=== PATIENT | female | born 1995 | race Caucasian/White ===

== ENCOUNTER 2016-05-25 18:41 | Emergency (ER) | payer OTHER ==
[2016-05-25 19:03] VITALS: BP 132/70
--- NOTE | 2016-05-25 19:27 | UC ---
Throat Pain/Nasal J Carlos HPI - HPI Summary HPI Summary: ST for 2-3 days. FEels like prior episodes of Strep. Low-grade fevers, malaise, body aches. Mild congestion. Dry cough. - History of Current Complaint Chief Complaint: UCGeneralIllness Stated Complaint: SORE THROAT Time Seen by Provider: 05/25/16 19:17 Hx Obtained From: Patient Hx Last Menstrual Period: 05/15/16 Onset/Duration: Gradual Onset, Lasting Days - 3 Severity: Mild Cough: Nonproductive Associated Signs & Symptoms: Positive: Dysphagia, Fever. Negative: Hoarseness - Epiglottits Risk Factors Epiglottis Risk Factors: Negative - Allergies/Home Medications Allergies/Adverse Reactions: Allergies Allergy/AdvReac Type Severity Reaction Status Date / Time Penicillins Allergy Rash Verified 05/25/16 19:04 Sulfa Antibiotics Allergy Rash Verified 05/25/16 19:04 Sulfamethoxazole Allergy Rash Verified 05/25/16 19:04 w/Trimethoprim [From Bactrim] Home Medications: Home Medications Ascorbic Acid TAB* [Vitamin C TAB*] 500 mg PO DAILY 05/25/16 [History Confirmed 05/25/16] Ibuprofen [Ibuprofen 200 MG] 400 mg PO DAILY PRN 05/25/16 [History Confirmed ] Zinc 30 mg PO DAILY 05/25/16 [History Confirmed 05/25/16] PMH/Surg Hx/FS Hx/Imm Hx Respiratory History Of: Reports: Asthma - Surgical History Surgical History: None - Family History Known Family History: Negative: Respiratory Disease, Seizure Disorder - Social History Occupation: Employed Full-time Lives: With Family Alcohol Use: Occasionally Substance Use Type: None Smoking Status (MU): Never Smoked Tobacco Review of Systems Constitutional: Negative Skin: Negative Eyes: Negative ENT: Sore Throat, Nasal Discharge Respiratory: Cough Cardiovascular: Negative Gastrointestinal: Negative Genitourinary: Negative Motor: Negative Neurovascular: Negative Musculoskeletal: Negative Neurological: Negative Psychological: Negative All Other Systems Reviewed And Are Negative: Yes Physical Exam Triage Information Reviewed: Yes Appearance: Well-Appearing, No Pain Distress, Well-Nourished Vital Signs: Initial Vital Signs Temp 98.2 F 05/25/16 18:58 Pulse 70 05/25/16 18:58 Resp 16 05/25/16 18:58 BP 132/70 05/25/16 18:58 Pulse Ox 100 05/25/16 18:58 Vital Signs Reviewed: Yes Eye Exam: Normal ENT: Positive: Pharynx normal, Pharyngeal erythema, TMs normal, Tonsillar swelling. Negative: Nasal drainage, Tonsillar exudate, Trismus, Muffled/hoarse voice Neck exam: Normal Respiratory Exam: Normal Cardiovascular Exam: Normal Musculoskeletal Exam: Normal Neurological Exam: Normal Psychological Exam: Normal Skin Exam: Normal Diagnostics - Laboratory Diagnostic Studies Completed/Ordered: Strep pos Throat Pain/Nasal Course/Dx - Differential Dx/Diagnosis Provider Diagnoses: Strep pharyngitis Discharge - Discharge Plan Condition: Stable Disposition: HOME Prescriptions: Cephalexin CAP* [Keflex 500 CAP*] 500 mg PO TID #30 cap Patient Education Materials: Strep Throat (ED) Referrals: Non Staff,Doctor [Primary Care Provider] -
== END 2016-05-25 19:38 | disposition home or self-care (01) ==
LOC: UCCORT 18:41
DX: J02.0 Streptococcal pharyngitis (principal); Z88.0 Allergy status to penicillin; Z88.2 Allergy status to sulfonamides
CPT/HCPCS: 87651; 99212; G0463

== ENCOUNTER 2016-06-07 17:53 | Emergency (ER) | payer OTHER ==
[2016-06-07 19:32] VITALS: BP 117/68
--- NOTE | 2016-06-07 19:59 | UC ---
Throat Pain/Nasal J Carlos HPI - HPI Summary HPI Summary: 2 day history of nasal congestion and drainage, cough. No fever. Has a headache , some nausea, no vomiting. History of asthma, not presently using albuterol. REcently treated for strep, reacted to cephalexin, finished azithromycin about a week ago. - History of Current Complaint Chief Complaint: UCGeneralIllness Stated Complaint: SINUS PAIN/CONGESTION Time Seen by Provider: 06/07/16 19:48 Hx Obtained From: Patient Hx Last Menstrual Period: 05/15/16 Onset/Duration: Gradual Onset, Lasting Days - 2 Severity: Moderate Cough: Nonproductive Associated Signs & Symptoms: Positive: Dysphagia - Epiglottits Risk Factors Epiglottis Risk Factors: Negative - Allergies/Home Medications Allergies/Adverse Reactions: Allergies Allergy/AdvReac Type Severity Reaction Status Date / Time Cephalexin Allergy Hives Verified 06/07/16 19:33 Penicillins Allergy Rash Verified 06/07/16 19:33 Sulfa Antibiotics Allergy Rash Verified 06/07/16 19:33 Sulfamethoxazole Allergy Rash Verified 06/07/16 19:33 w/Trimethoprim [From Bactrim] PMH/Surg Hx/FS Hx/Imm Hx - Additional Past Medical History Additional PMH: frequent respiratory illnesses, uses zinc prophylactically. Respiratory History Of: Reports: Asthma - Surgical History Surgical History: None - Family History Known Family History: Negative: Respiratory Disease, Seizure Disorder - Social History Alcohol Use: Occasionally Substance Use Type: None Smoking Status (MU): Never Smoked Tobacco Review of Systems Constitutional: Fatigue Skin: Negative Eyes: Negative ENT: Sore Throat Respiratory: Cough Cardiovascular: Negative Gastrointestinal: Negative Genitourinary: Negative Motor: Negative Neurovascular: Negative Musculoskeletal: Negative Neurological: Headache Psychological: Negative All Other Systems Reviewed And Are Negative: Yes Physical Exam Triage Information Reviewed: Yes Appearance: Ill-Appearing - congested, looks unwell Vital Signs: Initial Vital Signs Temp 99.7 F 06/07/16 19:27 Pulse 99 06/07/16 19:27 Resp 16 06/07/16 19:27 BP 117/68 06/07/16 19:27 Pulse Ox 100 06/07/16 19:27 Eye Exam: Normal ENT: Positive: Pharyngeal erythema, TMs normal Neck: Positive: Supple, Nontender, No Lymphadenopathy Respiratory: Positive: Lungs clear, Normal breath sounds Cardiovascular: Positive: RRR, No Murmur Abdomen Description: Positive: Nontender, No Organomegaly Musculoskeletal Exam: Normal Neurological: Positive: Alert, Muscle Tone Normal Psychological Exam: Normal Skin Exam: Normal Throat Pain/Nasal Course/Dx - Course Course Of Treatment: symptomatic treatment, continue flonase, use ibuprofen, small doses of sudafed. - Differential Dx/Diagnosis Provider Diagnoses: viral URI Discharge - Discharge Plan Condition: Stable Disposition: HOME Patient Education Materials: Upper Respiratory Infection (ED) Additional Instructions: Continue use of flonase and ibuprofen. You might use pseudoephedrine 30mg twice daily to help to dry secretions. Use albuterol as needed for any activation of your asthma. Return if you have increasing fever or shortness of breath.
== END 2016-06-07 20:16 | disposition home or self-care (01) ==
LOC: UCCORT 17:53
DX: J06.9 Acute upper respiratory infection, unspecified (principal); Z88.1 Allergy status to other antibiotic agents; Z88.0 Allergy status to penicillin; Z88.2 Allergy status to sulfonamides
CPT/HCPCS: 99211; G0463